=== PATIENT | male | born 1965 | race African-American/Black ===

== ENCOUNTER 2019-04-08 19:43 | Emergency (ER) | payer OTHER | END 2019-04-08 20:37 | disposition home or self-care (01) | LOC: ERS 19:43 | DX: S83.92XA Sprain of unspecified site of left knee, initial encounter (principal); E11.9 Type 2 diabetes mellitus without complications; E78.5 Hyperlipidemia, unspecified; F43.10 Post-traumatic stress disorder, unspecified; Z79.899 Other long term (current) drug therapy; Z79.4 Long term (current) use of insulin; X50.1XXA Overexertion from prolonged static or awkward postures, initial encounter | CPT/HCPCS: 99283 ==

== ENCOUNTER 2021-10-12 19:11 | Emergency (ER) | payer OTHER | END 2021-10-12 20:09 | disposition home or self-care (01) | LOC: ERS 19:11 | DX: S90.112A Contusion of left great toe without damage to nail, initial encounter (principal); E11.9 Type 2 diabetes mellitus without complications; I10 Essential (primary) hypertension; E78.5 Hyperlipidemia, unspecified; X58.XXXA Exposure to other specified factors, initial encounter ==

== ENCOUNTER 2021-10-30 06:48 | Emergency (ER) | payer OTHER | END 2021-10-30 08:12 | disposition left against medical advice (07) | LOC: ERS 06:48 | DX: Z53.21 Procedure and treatment not carried out due to patient leaving prior to being seen by health care provider (principal) ==

== ENCOUNTER 2022-03-29 19:07 | Emergency (ER) | payer OTHER, SELFPAY ==
[2022-03-29] MEDS ORDERED: Ketorolac Tromethamine 30 MG/ML VIAL ONE (19:35)
== END 2022-03-29 20:55 | disposition home or self-care (01) ==
LOC: ERS 19:07
DX: M25.512 Pain in left shoulder (principal); E11.9 Type 2 diabetes mellitus without complications; W19.XXXA Unspecified fall, initial encounter
CPT/HCPCS: 96372; J1885

== ENCOUNTER 2022-08-08 17:07 | Emergency (ER) | payer OTHER ==
[~2022-08-08 17:07] MED LIST: Iopamidol-370 76% 500 ML MDV (1 ML CHARGE) ONE
[2022-08-08 18:17] LABS: #Eosinphils 0.1 thou/uL (0.0-0.7); #Monocytes 0.6 thou/uL (0.11-0.59); #Neutrophils 4.6 thou/uL (1.40-6.50); %Basophils 0.5 % (0.0-1.0); %Eosinophils 1.6 % (0.0-10.0); %Lymphocytes 16.2 % (21.0-51.0); %Neutrophils 72.4 % (42.0-75.0); Hemoglobin 12.4 g/dL (14.0-18.0); Mean Corpuscular HGB CONC 32.7 g/dL (32.0-36.0); Mean Corpuscular Hemoglobin 29.5 pg (27.0-31.0); Mean Corpuscular Volume 90.2 fl (78.0-98.0); Mean Platelet Volume 9.8 fL (7.4-10.4); Platelet Count 278 10x3/uL (130-400); RBC Distribution Width 13.5 % (11.5-14.5); White Blood Cell (WBC) Count 6.3 10x3/uL (4.8-10.8)
[2022-08-08 18:40] LABS: ALT (SGPT) 34 U/L (8-55); AST (SGOT) 32 U/L (5-34); Alkaline Phosphatase 95 U/L (40-110); Anion Gap 14 mmol/L (10-20); BUN (Urea Nitrogen) 19 mg/dL (8.4-25.7); Bilirubin, Total 0.4 mg/dL (0.2-1.2); Calc. Creatinine Clearance 0 mL/min (70-130); Calcium 9.7 mg/dL (7.8-10.44); Carbon Dioxide 27 mmol/L (22-29); Chloride 107 mmol/L (98-107); Estimated GFR 56; Glucose 73 mg/dL (70-105); Lipase 27 U/L (8-78); Potassium 4.4 mmol/L (3.5-5.1); Sodium 144 mmol/L (136-145)
== END 2022-08-08 19:59 | disposition home or self-care (01) ==
LOC: ERS 17:07
DX: R07.89 Other chest pain (principal); E11.9 Type 2 diabetes mellitus without complications; Z79.84 Long term (current) use of oral hypoglycemic drugs
CPT/HCPCS: 36415; 71045; 71275; 80053; 83605; 83690; 84484; 85025; 85379; 93005; Q9967

== ENCOUNTER 2022-10-08 08:35 | Day surgery (SDC) | payer OTHER ==
[2022-10-05 13:24] VITALS: BMI 38.2
[2022-10-08] MEDS ORDERED: Ropivacaine 0.5% HCl/PF (150 MG/30 ML VIAL) ONE (10:00)
[2022-10-08] MEDS ORDERED: traMADol HCl 50 MG TAB PO PRN ×2 (10:00)
[2022-10-08] MEDS ORDERED: Promethazine HCl 25 MG/ML VIAL IM PRN (10:00)
[2022-10-08] MEDS ORDERED: Ondansetron PF 4 MG/2 ML Vial IVP PRN (10:00)
[2022-10-08] MEDS ORDERED: HYDROcodone/Acetaminophen 10/325 mg Tablet PO PRN ×2 (10:00)
[2022-10-08] MEDS ORDERED: Zolpidem Tartrate 5 MG TAB PO PRN (10:00)
[2022-10-08] MEDS ORDERED: Ropivacaine 0.2% 550 ML 550 ML NERVE BLCK SCH (10:00)
[2022-10-08] MEDS ORDERED: Midazolam HCl 2 mg/2 ml Vial ONE (10:06)
[2022-10-08] MEDS ORDERED: fentaNYL 50 mcg/mL 1 mL Vial ONE (10:06)
[2022-10-08] MEDS ORDERED: fentaNYL PF 100 MCG/2 ML SYRINGE ONE (10:16)
[2022-10-08] MEDS ORDERED: Phenylephrine 10 MG/ML VIAL ONE (10:18)
[2022-10-08] MEDS ORDERED: Sodium Chloride 0.9% 100 ML ONE (10:39)
[2022-10-08] MEDS ORDERED: CEFAZOLIN 2 GM VIAL ONE (10:39)
[2022-10-08] MEDS ORDERED: Ondansetron PF 4 MG/2 ML Vial ONE (10:53)
[2022-10-08] MEDS ORDERED: Vecuronium 10 MG VIAL ONE (10:53)
[2022-10-08] MEDS ORDERED: Glycopyrrolate 0.2 MG/ML 5 ML SYRINGE ONE (10:53)
[2022-10-08] MEDS ORDERED: PHENYLEPHRINE-NS 100 MCG/ML 10 ML SYRINGE ONE (10:53)
[2022-10-08] MEDS ORDERED: Rocuronium Bromide 10 MG/ML (10ML VIAL) ONE (10:53)
[2022-10-08] MEDS ORDERED: PROPOFOL 200 MG/20 ML VIAL ONE (10:53)
[2022-10-08] MEDS ORDERED: SUGAMMADEX SODIUM 200 MG/2 ML VIAL ONE (11:56)
[2022-10-08] MEDS ORDERED: EPINEPHrine 1 MG/ML AMP ONE (11:56)
[2022-10-08] MEDS ORDERED: Lidocaine 1% (PF) 30 ML VIAL ONE (11:56)
[2022-10-08] MEDS ORDERED: Ketorolac Tromethamine 30 MG/ML VIAL IVP SCH (12:00)
[2022-10-08] MEDS ORDERED: Labetalol HCl 100 MG/20 ML VIAL ONE (13:09)
== END 2022-10-08 14:55 | disposition home or self-care (01) ==
LOC: SDC 08:35
PROVIDERS: ATTEND Orthopaedic Surgery
PROC: 0RNK4ZZ Release Left Shoulder Joint, Percutaneous Endoscopic Approach (ICD-10-PCS; principal; 2022-10-08)
PROC: 0LS40ZZ Reposition Left Upper Arm Tendon, Open Approach (ICD-10-PCS; principal; 2022-10-08)
DX: S46.012A Strain of muscle(s) and tendon(s) of the rotator cuff of left shoulder, initial encounter (principal); S43.432A Superior glenoid labrum lesion of left shoulder, initial encounter; M75.22 Bicipital tendinitis, left shoulder; X50.0XXA Overexertion from strenuous movement or load, initial encounter; F43.10 Post-traumatic stress disorder, unspecified; E11.9 Type 2 diabetes mellitus without complications; I10 Essential (primary) hypertension; Z79.899 Other long term (current) drug therapy
CPT/HCPCS: 36416; A4306; C1713; J0171; J2001; J2250; J2370; J2405; J2704; J2795; J3010; J3490

== ENCOUNTER 2023-05-27 10:30 | Outpatient (CLI) | payer OTHER | END 2023-05-27 10:31 | disposition home or self-care (01) | LOC: BICULT 10:30 | DX: R80.9 Proteinuria, unspecified (principal) | CPT/HCPCS: 76770 ==

== ENCOUNTER 2023-10-16 18:45 | Emergency (ER) | payer OTHER ==
[2023-10-16] MEDS ORDERED: Ketorolac Tromethamine 30 MG (1 mL) VIAL ONE (20:02)
[2023-10-16 20:25] LABS: #Basophils Less than 0.03 10x3/uL (0.0-0.2); %Basophils 0.2 % (0.0-1.0); %Eosinophils 2.7 % (0.0-10.0); %Lymphocytes 17.8 % (21.0-51.0); %Monocytes 8.9 % (0.0-10.0); %Neutrophils 70.2 % (42.0-75.0); Hematocrit 38.2 % (42.0-52.0); Hemoglobin 12.8 g/dL (14.0-18.0); Mean Corpuscular HGB CONC 33.5 g/dL (32.0-36.0); Mean Corpuscular Hemoglobin 30.2 pg (27.0-31.0); Mean Corpuscular Volume 90.1 fL (78.0-98.0); Mean Platelet Volume 9.7 fL (7.4-10.4); Platelet Count 272 10x3/uL (130-400); RBC Distribution Width 14.3 % (11.5-14.5); Red Blood Cell (RBC) Count 4.24 mill/uL (4.70-6.10)
== END 2023-10-16 20:30 | disposition home or self-care (01) ==
LOC: ERS 18:45
DX: M79.644 Pain in right finger(s) (principal); I10 Essential (primary) hypertension; E11.9 Type 2 diabetes mellitus without complications; W18.30XA Fall on same level, unspecified, initial encounter; Y93.01 Activity, walking, marching and hiking; Y92.009 Unspecified place in unspecified non-institutional (private) residence as the place of occurrence of the external cause; Z79.4 Long term (current) use of insulin; Z79.84 Long term (current) use of oral hypoglycemic drugs; Z79.899 Other long term (current) drug therapy
CPT/HCPCS: 36415; 85025; 96372; J1885

== ENCOUNTER 2024-04-06 05:34 | Emergency (ER) | payer OTHER ==
[2024-04-06] MEDS ORDERED: Ketorolac Tromethamine 30 MG (1 mL) VIAL ONE (05:58)
== END 2024-04-06 06:41 | disposition home or self-care (01) ==
LOC: ERS 05:34
DX: M25.511 Pain in right shoulder (principal); E11.9 Type 2 diabetes mellitus without complications; I10 Essential (primary) hypertension; E78.5 Hyperlipidemia, unspecified; W01.0XXA Fall on same level from slipping, tripping and stumbling without subsequent striking against object, initial encounter; Y93.89 Activity, other specified; Y92.69 Other specified industrial and construction area as the place of occurrence of the external cause; Y99.0 Civilian activity done for income or pay
CPT/HCPCS: 96372; 99283; J1885

== ENCOUNTER 2024-05-19 15:57 | Emergency (ER) | payer OTHER ==
[2024-05-19] MEDS ORDERED: cefTRIAXone (ROCEPHIN) 2 GM VIAL ONE (17:18)
[2024-05-19] MEDS ORDERED: Sodium Chloride 0.9% 100 ML ONE (17:18)
== END 2024-05-19 17:57 | disposition home or self-care (01) ==
LOC: ERS 15:57
DX: E11.69 Type 2 diabetes mellitus with other specified complication (principal); M86.172 Other acute osteomyelitis, left ankle and foot; I10 Essential (primary) hypertension
CPT/HCPCS: 96365; J0696

== ENCOUNTER 2024-05-22 06:56 | Emergency (ER) | payer OTHER ==
[2024-05-22] MEDS ORDERED: cefTRIAXone (ROCEPHIN) 2 GM VIAL ONE (07:22)
[2024-05-22] MEDS ORDERED: Sodium Chloride 0.9% 100 ML ONE (07:22)
== END 2024-05-22 09:17 | disposition home or self-care (01) ==
LOC: ERS 06:56
DX: M86.9 Osteomyelitis, unspecified (principal); E11.9 Type 2 diabetes mellitus without complications; I10 Essential (primary) hypertension
CPT/HCPCS: 96365; J0696

== ENCOUNTER 2024-05-25 05:39 | Emergency (ER) | payer OTHER ==
[2024-05-25] MEDS ORDERED: Lidocaine 1% MPF 2 ML VIAL ONE ×2 (06:21→06:22)
[2024-05-25] MEDS ORDERED: cefTRIAXone (ROCEPHIN) 2 GM VIAL ONE ×2 (06:21→06:27)
[2024-05-25] MEDS ORDERED: Sodium Chloride 0.9% 100 ML ONE (06:27)
== END 2024-05-25 07:34 | disposition home or self-care (01) ==
LOC: ERS 05:39
DX: E11.69 Type 2 diabetes mellitus with other specified complication (principal); M86.9 Osteomyelitis, unspecified; I10 Essential (primary) hypertension; Z90.49 Acquired absence of other specified parts of digestive tract
CPT/HCPCS: 96365; J0696